=== PATIENT | male | born 1965 | race Hispanic/Latino ===

== ENCOUNTER → 2017-02-16 | Outpatient (CLI) | payer OTHER ==
--- NOTE | 2017-02-16 11:14 | REP ---
Clinical: Pain. Technique: AP, lateral, bilateral oblique and sunrise views of the right knee. Findings: Moderate tricompartmental osteoarthritic degenerative changes are appreciated. Findings include osteophyte formation and cortical irregularity primarily involving the medial and patellofemoral compartments. Subchondral sclerosis involving the tibial plateau and posterior patella noted with medial and patellofemoral joint space narrowing. Chondrocalcinosis identified. No acute fracture or dislocation. No effusion. Impression: Moderate tricompartmental osteoarthritic degenerative changes Signed by Kale Ravi MD 02/16/2017 11:05 A
== END ==
LOC: M RAD 09:10
PROVIDERS: ATTEND Surgery
DX: M25.561 Pain in right knee (principal); M17.11 Unilateral primary osteoarthritis, right knee

== ENCOUNTER → 2017-03-16 | Outpatient (CLI) | payer OTHER ==
--- NOTE | 2017-03-16 11:17 | REP ---
Chest two views HISTORY: Congestion Comparison: None The lungs are clear. The heart is normal in size. The pulmonary vasculature is normal in appearance. The bony structure is intact. A 7 mm metallic density is present in the posterior subcutaneous tissue overlying in the upper left hemithorax. IMPRESSION: No acute disease. Signed by Delfino Hinton MD 03/16/2017 11:09 A
== END ==
LOC: M RAD 09:18
PROVIDERS: ATTEND Surgery
DX: R09.89 Other specified symptoms and signs involving the circulatory and respiratory systems (principal); B20 Human immunodeficiency virus [HIV] disease

== ENCOUNTER 2017-07-26 12:11 | Emergency (ER) | payer OTHER ==
[~2017-07-26] VITALS: Ht 170.2 cm; Wt 81.8 kg
[2017-07-26 12:11] VITALS: BP 116/74
[2017-07-26] MEDS ORDERED: ALBU83IN INH (12:24)
[2017-07-26] MEDS ORDERED: ATRIPLA PO (12:24)
[2017-07-26] MEDS ORDERED: CIPR-249 PO (13:28)
[2017-07-26] MEDS ORDERED: FLAG500T PO (13:28)
[2017-07-27] MEDS ORDERED: IBUP-1022 PO (15:25)
[2017-07-27] MEDS ORDERED: ZOFR4TAB3 PO (15:25)
== END 2017-07-26 13:45 | disposition home or self-care (01) ==
LOC: M ED 12:11
DX: R10.9 Unspecified abdominal pain (principal); B20 Human immunodeficiency virus [HIV] disease; F17.200 Nicotine dependence, unspecified, uncomplicated; Z79.899 Other long term (current) drug therapy

== ENCOUNTER 2017-07-27 12:34 | Emergency (ER) | payer OTHER ==
[~2017-07-27] VITALS: Ht 170.2 cm; Wt 84.5 kg
[~2017-07-27 12:34] MED LIST: ALBU83IN INH; ATRIPLA PO; CIPR-249 PO; FLAG500T PO
[2017-07-27 13:38] LABS: BASO # 0.1 10^3/uL (0.0-0.2); EOS # 0.2 10^3/uL (0.0-0.50); EOS % 2.6 % (0.0-3.0); IMMATURE GRANULOCYTE % 0.5 % (0-0); LYMPH # 2.5 10^3/uL (1.5-4.5); LYMPH % 40.8 % (24.0-44.0); MEAN CORPUSCULAR HEMOGLOBIN 32.7 pg (27.0-33.0); MEAN CORPUSCULAR HGB CONC 35.6 g/dl (32.0-36.5); MEAN CORPUSCULAR VOLUME 91.9 fl (80.0-96.0); MONO # 0.5 10^3/uL (0.0-0.8); MONO % 7.8 % (0.0-5.0); NEUTROPHILS # 2.9 10^3/uL (1.8-7.7); NEUTROPHILS % 47.3 % (36.0-66.0); PLATELET COUNT, AUTOMATED 267 10^3/uL (150-450); RED CELL DISTRIBUTION WIDTH 11.9 % (11.5-14.5); WHITE BLOOD COUNT 6.1 10^3/uL (4.0-10.0)
[2017-07-27 14:18] LABS: ALBUMIN 4.1 GM/DL (3.2-5.2); ALBUMIN/GLOBULIN RATIO 1.03 (1.00-1.93); ALKALINE PHOSPHATASE 126 U/L (45-117); ALT/SGPT 33 U/L (12-78); AMYLASE 74 U/L (25-115); ANION GAP 8 MEQ/L (8-16); AST/SGOT 22 U/L (7-37); BILIRUBIN,DIRECT < 0.1 MG/DL (0.0-0.2); BILIRUBIN,TOTAL 0.2 MG/DL (0.2-1.0); BLOOD UREA NITROGEN 19 MG/DL (7-18); CALCIUM LEVEL 9.1 MG/DL (8.5-10.1); CARBON DIOXIDE LEVEL 26 MEQ/L (21-32); CHLORIDE LEVEL 107 MEQ/L (98-107); CREATININE FOR GFR 0.75 MG/DL (0.70-1.30); GLOMERULAR FILTRATION RATE > 60.0 (>56); GLUCOSE, FASTING 118 MG/DL (70-105); POTASSIUM SERUM 4.4 MEQ/L (3.5-5.1); SODIUM LEVEL 141 MEQ/L (136-145); TOTAL PROTEIN 8.1 GM/DL (6.4-8.2)
[2017-07-27] MEDS ORDERED: ISOVUE-370 76% 100ML VIAL (Q9967) As Ordered ONE (14:43)
--- NOTE | 2017-07-27 15:09 | REP ---
CT abdomen pelvis without IV contrast, without bowel contrast: There are no comparisons. The visualized lung brice are unremarkable. The hepatic parenchyma is homogeneous. There are surgical clips in the gallbladder fossa. Pancreas and spleen are normal size and unremarkable. The adrenals are unremarkable. There is a 16 mm calculus in the right renal pelvis. There is a 7 mm calculus in the posterior right renal mechelle at the mid pole. There is no right hydronephrosis. There is a parapelvic cyst in the upper pole of the right kidney. There are no left renal or ureteral calculi. There is no left hydronephrosis. There are no bladder calculi. The abdominal aorta is unremarkable. There is no bowel distension or obstruction. Pelvis: The appendix has a normal appearance. There is no ascites or adenopathy. The prostate is enlarged. The bladder is unremarkable. The pelvic bowel loops are unremarkable. Impression: There is a 16 mm calculus in the right renal pelvis and a 7 mm calculus in the right renal posterior mechelle. These are nonobstructive. There is no right hydronephrosis. There are no bladder calculi. There are no left renal calculi. There is no left hydronephrosis. The patient has a cholecystectomy. The appendix is unremarkable. Otherwise, negative CT of the abdomen and pelvis. Signed by Tom De Los Santos MD 07/27/2017 03:01 P
[2017-07-27] MEDS ORDERED: IBUP-1022 PO (15:25)
[2017-07-27] MEDS ORDERED: ZOFR4TAB3 PO (15:25)
[2017-07-27 15:36] VITALS: BP 103/71
== END 2017-07-27 15:40 | disposition home or self-care (01) ==
LOC: M ED 12:34
DX: N20.0 Calculus of kidney (principal); R10.9 Unspecified abdominal pain; B20 Human immunodeficiency virus [HIV] disease; J45.909 Unspecified asthma, uncomplicated; F17.200 Nicotine dependence, unspecified, uncomplicated; Z79.899 Other long term (current) drug therapy
CPT/HCPCS: 74177; 80048; 80076; 81001; 82150; 83690; 85025; 99284; Q9967

== ENCOUNTER → 2017-07-30 | Outpatient (CLI) | payer OTHER ==
[~2017-07-30] MED LIST changes: +IBUP-1022 PO; +ZOFR4TAB3 PO
--- NOTE | 2017-07-30 14:29 | PFTRPT ---
Tech: Emanuel ACHARYA RRT Age: 51 Sex: Male Race: Height: 67.50 Inches Weight: 180.00 Lbs BSA: 1.94 Diagnosis: SOB TECH NOTE: Lung volumes not ordered. PULMONARY FUNCTION REPORT ORDERING PROVIDER: Gato White MD DATE OF SERVICE: 07/30/17 SPIROMETRY: Pre and post bronchodilator study of excellent technical quality. Some difficulty with effort is suspected. The forced vital capacity is reduced. The FEV1 is in proportion. The obstructive index is, therefore, normal. FLOW VOLUME LOOP: The expiratory limb of the flow volume loop suggests some nonspecific flow rate limitation. Some degree of bronchodilator response is identified. LUNG VOLUMES: The slow vital capacity is generally in proportion. DIFFUSION CAPACITY: The diffusion capacity is normal and remains normal when corrected for alveolar volume. HEMOGLOBIN: No hemoglobin is available for correction. IMPRESSION: Nonspecific flow rate limitation with bronchodilator response. Please correlate clinically. MTDD
== END ==
LOC: M CARPUL 13:56
PROVIDERS: ATTEND Surgery
DX: B20 Human immunodeficiency virus [HIV] disease (principal)

== ENCOUNTER 2017-12-13 12:11 | Emergency (ER) | payer OTHER ==
[2017-12-13 14:04] LABS: KETONE, URINE AUTO RFX NEGATIVE (NEGATIVE); MUCUS, URINE RFX MODERATE (NEGATIVE); NITRITE, URINE AUTO RFX NEGATIVE (NEGATIVE); RBC, URINE AUTO RFX 1 /HPF (0-3); SPECIFIC GRAVITY UR AUTO RFX 1.021 (1.002-1.035); SQUAM EPITHELIAL CELL UR AURFX 1 /HPF (0-6); WBC, URINE AUTO RFX 4 /HPF (0-3)
[2017-12-13 14:19] LABS: BASO # 0.1 10^3/uL (0.0-0.2); BASO % 1.2 % (0.0-1.0); EOS # 0.2 10^3/uL (0.0-0.50); EOS % 2.8 % (0.0-3.0); HEMATOCRIT 44.3 % (42.0-52.0); HEMOGLOBIN 15.7 g/dl (13.5-17.5); IMMATURE GRANULOCYTE % 0.5 % (0-3.0); LYMPH # 2.1 10^3/uL (1.5-4.5); LYMPH % 36.8 % (24.0-44.0); MEAN CORPUSCULAR HEMOGLOBIN 32.6 pg (27.0-33.0); MEAN CORPUSCULAR HGB CONC 35.4 g/dl (32.0-36.5); MEAN CORPUSCULAR VOLUME 92.1 fl (80.0-96.0); MONO # 0.5 10^3/uL (0.0-0.8); MONO % 8.9 % (0.0-5.0); NEUTROPHILS # 2.9 10^3/uL (1.8-7.7); NEUTROPHILS % 49.8 % (36.0-66.0); PLATELET COUNT, AUTOMATED 271 10^3/uL (150-450); RED BLOOD COUNT 4.81 10^6/uL (4.30-6.10); RED CELL DISTRIBUTION WIDTH 12.2 % (11.5-14.5); WHITE BLOOD COUNT 5.7 10^3/uL (4.0-10.0)
[2017-12-13 14:32] LABS: LEUKOCYTE ESTERASE UR AUTO RFX TRACE (NEGATIVE)
[2017-12-13] MEDS: KETOROLAC 30 MG/ML VIAL (J1885) IV (14:36)
[2017-12-13] MEDS: ONDANSETRON 4MG/2ML VIAL (J2405) IV (14:36)
[2017-12-13 14:45] LABS: ALBUMIN/GLOBULIN RATIO 0.93 (1.00-1.93); ALKALINE PHOSPHATASE 122 U/L (45-117); ALT/SGPT 26 U/L (12-78); ANION GAP 3 MEQ/L (8-16); AST/SGOT 24 U/L (7-37); BILIRUBIN,DIRECT < 0.1 MG/DL (0.0-0.2); BILIRUBIN,TOTAL 0.2 MG/DL (0.2-1.0); BLOOD UREA NITROGEN 18 MG/DL (7-18); CALCIUM LEVEL 8.8 MG/DL (8.5-10.1); CARBON DIOXIDE LEVEL 27 MEQ/L (21-32); CHLORIDE LEVEL 109 MEQ/L (98-107); CREATININE FOR GFR 0.71 MG/DL (0.70-1.30); GLOMERULAR FILTRATION RATE > 60.0 (>56); GLUCOSE, FASTING 80 MG/DL (70-100); LIPASE 94 U/L (73-393); POTASSIUM SERUM 4.5 MEQ/L (3.5-5.1); SODIUM LEVEL 139 MEQ/L (136-145); TOTAL PROTEIN 8.3 GM/DL (6.4-8.2)
== END 2017-12-13 17:10 | disposition home or self-care (01) ==
LOC: M ED 12:11
DX: R10.9 Unspecified abdominal pain (principal); R11.2 Nausea with vomiting, unspecified; R19.7 Diarrhea, unspecified; B20 Human immunodeficiency virus [HIV] disease; J45.909 Unspecified asthma, uncomplicated; Z79.899 Other long term (current) drug therapy
CPT/HCPCS: J2405